=== PATIENT | female | born 1955 ===

== ENCOUNTER 2017-09-28 09:15 | Inpatient (IN) | payer OTHER ==
[~2017-09-28] VITALS: Ht 160 cm; Wt 100.7 kg
[2017-09-28] MEDS ORDERED: DIOVAN HCT 3201 EACH PO (14:03)
[2017-09-28] MEDS ORDERED: SYNTHROID200 MCG PO (14:04)
[2017-09-28] MEDS ORDERED: LIPITOR40 MG PO (14:04)
[2017-09-28] MEDS ORDERED: ALDACTONE25 MG PO (14:04)
[2017-09-28] MEDS ORDERED: PAXIL40 MG PO (14:04)
[2017-09-28] MEDS ORDERED: ASA81 MG PO (14:05)
[2017-09-28] MEDS ORDERED: CARVEDILOL25 MG PO (14:05)
[2017-09-28] MEDS ORDERED: HYDRALAZINE HCL25 MG PO (14:05)
== END 2017-10-07 16:22 | DRG 470 ==
LOC: O/R 10-05 08:45 → SURH 10-05 14:58
PROVIDERS: Orthopaedic Surgery
PROC: 0SRC0J9 Replacement of Right Knee Joint with Synthetic Substitute, Cemented, Open Approach (ICD-10-PCS; principal; 2017-10-05 14:00)
DX: M17.11 Unilateral primary osteoarthritis, right knee (principal); D62 Acute posthemorrhagic anemia; I10 Essential (primary) hypertension; E03.8 Other specified hypothyroidism; G47.33 Obstructive sleep apnea (adult) (pediatric)